=== PATIENT | male | born 1965 | race Asian ===

== ENCOUNTER 2023-06-07 20:50 | Emergency (ER) | payer BC ==
[2023-06-07 21:27] VITALS: BP 144/85; PULSE 85; RESP 17; TEMP 98.5; BMI 34.5
[2023-06-07] MEDS ORDERED: CEPHALEXIN MONOHYDRATE 500 MG CAPSULE (UD) PO ONE (22:08)
[2023-06-07] MEDS ORDERED: DIPHTH,PERTUSS(ACELL),TET 0.5 ML DISP.SYRIN IM ONE (22:08)
[2023-06-07] MEDS ORDERED: CEPHALEXIN MONOHYDRATE 500 MG CAPSULE (UD) ONE (22:12)
[2023-06-07] MEDS ORDERED: TETANUS AND DIPHTHERIA TOXOID 0.5 ML DISP.SYRIN IM ONE (22:13)
== END 2023-06-07 22:43 | disposition home or self-care (01) ==
LOC: FER 20:50
PROC: 0HQJXZZ Repair Left Upper Leg Skin, External Approach (ICD-10-PCS; principal; 2023-06-07)
PROC: 3E0234Z Introduction of Serum, Toxoid and Vaccine into Muscle, Percutaneous Approach (ICD-10-PCS; 2023-06-07)
DX: S81.012A Laceration without foreign body, left knee, initial encounter (principal); S93.401A Sprain of unspecified ligament of right ankle, initial encounter; S80.211A Abrasion, right knee, initial encounter; W01.0XXA Fall on same level from slipping, tripping and stumbling without subsequent striking against object, initial encounter; Y92.9 Unspecified place or not applicable
CPT/HCPCS: 73140-TC-RT-FY; 73562-TC-LT-FY; 73610-TC-RT-FY; 90715; 99284-25